=== PATIENT | female | born 1990 | race Hispanic/Latino ===

== ENCOUNTER 2017-09-16 01:58 | Emergency (ER) | payer OTHER ==
[2017-09-16 02:25] VITALS: TEMP 98.1
[2017-09-16 02:26] VITALS: RESP 16
[2017-09-16] MEDS ORDERED: Sodium Chloride 0.9% 1,000 ML IV STA (02:50)
--- NOTE | 2017-09-16 02:51 | ED PDOC ---
HPI: SOB/CHF/COPD Time Seen by Provider: 09/16/17 02:20 Chief Complaint (Nursing): Shortness Of Breath Chief Complaint (Provider): shortness of breath History Per: Patient History/Exam Limitations: no limitations Onset/Duration Of Symptoms: Hrs, Waxing/Waning Current Symptoms Are (Timing): Still Present Additional History Per: Patient Additional Complaint(s): 26 y/o female presents with intermittent shortness of breath x 12 hours. Patient states symptoms started while on a flight home from [place] (flew there Friday and home today). Patient states every time she would try to fall asleep she would be woken up by the shortness of breath, with associated chest pressure. Patient notes mild cough/cold symptoms. Denies fever, congestion, palpitations, abdominal pain, leg pain/swelling, sick contacts. - Risk Factors PE Risk Factors: Neg: Extremity Immobilization/Fx Past Medical History Reviewed: Historical Data, Nursing Documentation, Vital Signs Vital Signs: Last Vital Signs Temp 98.1 F 09/16/17 02:18 Pulse 90 09/16/17 02:18 Resp 16 09/16/17 02:26 BP 130/79 09/16/17 02:18 Pulse Ox 99 09/16/17 04:28 - Medical History PMH: No Chronic Diseases - Surgical History Surgical History: No Surg Hx - Family History Family History: States: No Known Family Hx - Social History Current smoker - smoking cessation education provided: No Alcohol: Social Drugs: Denies - Home Medications Home Medications: Ambulatory Orders Medication Instructions Recorded Albuterol HFA [Ventolin HFA 90 1 puff IH Q4 PRN #1 inh 09/16/17 mcg/actuation (8 g)] Azithromycin [Zithromax] 250 mg PO DAILY #1 packet 09/16/17 - Allergies Allergies/Adverse Reactions: Allergies Allergy/AdvReac Type Severity Reaction Status Date / Time No Known Allergies Allergy Verified 09/16/17 02:18 Review of Systems ROS Statement: Except As Marked, All Systems Reviewed And Found Negative Cardiovascular: Positive for: Chest Pain Respiratory: Positive for: Cough, Shortness of Breath. Negative for: Sputum Physical Exam - Reviewed Nursing Documentation Reviewed: Yes Vital Signs Reviewed: Yes - Physical Exam Appears: Positive for: Well, Non-toxic, No Acute Distress Head Exam: Positive for: ATRAUMATIC, NORMAL INSPECTION, NORMOCEPHALIC Skin: Positive for: Normal Color Eye Exam: Positive for: Normal appearance ENT: Positive for: Normal ENT Inspection Cardiovascular/Chest: Positive for: Regular Rate, Rhythm Respiratory: Positive for: Normal Breath Sounds Gastrointestinal/Abdominal: Positive for: Normal Exam Back: Positive for: Normal Inspection Extremity: Positive for: Normal ROM Neurologic/Psych: Positive for: Alert, Oriented - Laboratory Results Result Diagrams: 09/16/17 02:59 09/16/17 02:59 - ECG ECG: Positive for: Viewed By Me ECG Rhythm: Positive for: Sinus Rhythm O2 Sat by Pulse Oximetry: 99 Pulse Ox Interpretation: Normal - Radiology X-Ray: Viewed By Me X-Ray Interpretation: No Acute Disease - Progress ED Course And Treament: labs, ekg, chest xray D Dimer elevated, will order CTA to r/out PE EXAM: CT Angiography Chest With Intravenous Contrast CLINICAL HISTORY: 26 years old, female; Pain; Chest pain; Additional info: Chest pain, SOB TECHNIQUE: Axial computed tomographic angiography images of the chest with intravenous contrast using pulmonary embolism protocol. All CT scans at this facility use one or more dose reduction techniques, viz.: automated exposure control; ma/kV adjustment per patient size (including targeted exams where dose is matched to indication; i.e. head); or iterative reconstruction technique. 1080 images are submitted. MIP reconstructed images were created and reviewed. Coronal and sagittal reformatted images were created and reviewed. CONTRAST: 90 mL of [id number] administered intravenously. COMPARISON: No relevant prior studies available. FINDINGS: Pulmonary arteries: No CT evidence for pulmonary embolus. Aorta: No acute findings. No thoracic aortic aneurysm. Lungs: Mild parabronchial cuffing, which can be seen with bronchitis, reactive airway disease or viral pneumonitis versus mild failure.Bibasilar mild hazy patchy nonspecific infiltrates are present, consistent with atelectasis or pneumonia. Correlation with patient's hydration status is recommended. No mass. Pleural space: Unremarkable. No significant effusion. No pneumothorax. Heart: Unremarkable. No cardiomegaly. No significant pericardial effusion. Bones/joints: No acute fracture. No dislocation. Soft tissues: Unremarkable. Lymph nodes: Unremarkable. No enlarged lymph nodes. IMPRESSION: 1. Mild parabronchial cuffing, which can be seen with bronchitis, reactive airway disease or viral pneumonitis versus mild failure.Bibasilar mild hazy patchy nonspecific infiltrates are present, consistent with atelectasis or pneumonia. Correlation with patient's hydration status is recommended. 2. No CT evidence for pulmonary embolus. Patient educated on findings, will cover with Zpak and ALbuterol for CT findings. Advised follow up PMD 2-3 days. Return precautions given. Disposition - Clinical Impression Clinical Impression: Bronchitis, Dyspnea - Patient ED Disposition Is Patient to be Admitted: No Counseled Patient/Family Regarding: Studies Performed, Diagnosis, Need For Followup, Rx Given - Disposition Disposition: Routine/Home Disposition Time: 05:49 Condition: IMPROVED Prescriptions: Albuterol HFA [Ventolin HFA 90 mcg/actuation (8 g)] 1 puff IH Q4 PRN #1 inh PRN Reason: Wheezing Azithromycin [Zithromax] 250 mg PO DAILY #1 packet Instructions: Acute Bronchitis (ED), Dyspnea (ED) Forms: [facility] ([place])
[2017-09-16 03:05] LABS: BASO % 0.5 % (0.0-2.0); EOS % 0.6 % (0.0-4.0); HEMOGLOBIN 12.2 g/dL (12.0-16.0); LYMPH # 1.7 K/uL (1.0-4.3); LYMPH % 22.8 % (20.0-40.0); MEAN CELL VOLUME 91.7 fl (81.0-99.0); MEAN CORPUSCULAR HEMOGLOBIN 32.7 pg (27.0-31.0); MEAN CORPUSCULAR HGB CONC 35.6 g/dL (33.0-37.0); MEAN PLATELET VOLUME 10.2 fl (7.2-11.7); MONO # 0.7 K/uL (0.0-0.8); MONO % 9.8 % (0.0-10.0); NEUT % 66.3 % (50.0-75.0); NRBC % 0.2 % (0.0-0.0); RBC 3.73 Mil/uL (3.80-5.20); RED CELL DISTRIBUTION WIDTH 12.9 % (11.5-14.5); WHITE BLOOD COUNT 7.5 K/uL (4.8-10.8)
[2017-09-16 03:17] LABS: CALCIUM 9.5 mg/dL (8.4-10.2); GFR AFRICAN-AMERICAN > 60; GFR NON-AFRICAN AMERICAN > 60
[2017-09-16 03:19] LABS: ALB/GLOB RATIO 1.4 (1.0-2.1); ALBUMIN 4.3 g/dL (3.5-5.0); ALT/SGPT 14 U/L (9-52); AST/SGOT 42 U/L (14-36); BLOOD UREA NITROGEN 10 mg/dl (7-17)
[2017-09-16] MEDS ORDERED: Sodium Chloride 0.9% 50 ML IV ONE (04:50)
[2017-09-16] MEDS ORDERED: Iodixanol 320 MG/ML 100 ML BOTTLE IV ONE (04:50)
[2017-09-16] MEDS ORDERED: Albuterol-Ipratrop 3 mg / 0.5 (3 ml) UD IH STA (05:48)
[2017-09-16 05:55] VITALS: BP 127/79; PULSE 78; O2SAT 100
--- NOTE | 2017-09-16 09:05 | CT ---
PROCEDURE: CT Chest with contrast (Pulmonary Angiogram) HISTORY: chest pain, SOB COMPARISON: Chest radiographs 09/16/2017 2:53 a.m. TECHNIQUE: Axial computed tomography images were obtained of the chest in the pulmonary arterial phase of enhancement. Coronal and sagittal reformatted images were created and reviewed. Intravenous contrast dose: Visipaque 320, 90 cc. Radiation dose: Total exam DLP = 372.08 mGy-cm. This CT exam was performed using one or more of the following dose reduction techniques: Automated exposure control, adjustment of the mA and/or kV according to patient size, and/or use of iterative reconstruction technique. FINDINGS: PULMONARY ARTERIES: Unremarkable. No pulmonary embolism. AORTA: No acute findings. No thoracic aortic aneurysm. LUNGS: . No alveolitis is appreciated and there is no pulmonary mass identified including central airways. Limited in peribronchial thickening is question in the central airways is may indicate an element of bronchitis. Clinically correlate further. Trace bilateral basilar dependent atelectasis identified PLEURAL SPACES: Unremarkable. No effusion or pneuomothorax. HEART: Unremarkable. No cardiomegaly. No significant pericardial effusion. LYMPH NODES: No lymphadenopathy. BONES, CHEST WALL: Unremarkable. No fracture or destructive lesion OTHER FINDINGS: Unremarkable. IMPRESSION: No CT evidence to suggest pulmonary embolus. No acute infiltrate although limited bilateral basilar atelectasis present as well as trace peribronchial thickening potentially reflecting bronchitis as discussed above.
--- NOTE | 2017-09-16 09:54 | RAD ---
HISTORY: chest pressure COMPARISON: No prior. TECHNIQUE: Chest PA and lateral FINDINGS: LUNGS: No active pulmonary disease. PLEURA: No significant pleural effusion identified. No pneumothorax apparent. CARDIOVASCULAR: Normal. OSSEOUS STRUCTURES: No significant abnormalities. VISUALIZED UPPER ABDOMEN: Normal. OTHER FINDINGS: None. IMPRESSION: No active disease.
== END 2017-09-16 06:14 | disposition home or self-care (01) ==
LOC: H.ER 01:58
DX: J20.9 Acute bronchitis, unspecified (principal); R06.00 Dyspnea, unspecified
CPT/HCPCS: 71046; 71275; 80053; 81025; 84484; 85025; 85378; 94640; 96360; 99284; J7040; Q9967